=== PATIENT | male | born 1965 | race Hispanic/Latino ===

== ENCOUNTER → 2024-05-15 | Outpatient (CLI) | payer OTHER ==
--- NOTE | 2024-05-15 11:49 | HMCIMG ---
ABD 1VW HISTORY: Renal stone COMPARISON: None 07/12/2023 FINDINGS: A frontal projection of the abdomen was obtained. A nonspecific bowel gas pattern is seen. Fecal material is seen in the colon. Evaluation for renal stone is limited due to large amount of fecal material. Secretions are seen in the pelvis consistent with phleboliths. Degenerative changes of the thoracolumbar spine are noted. IMPRESSION: 1. A nonspecific bowel gas pattern is seen. Large amount of fecal material is seen in the colon limiting evaluation for renal stones.
--- NOTE | 2024-05-15 11:56 | HMCIMG ---
TOMOGRAM REASON: CALCULUS OF KIDNEY. COMPARISON: 07/12/2023 TECHNIQUE: Tomogram of the kidneys were obtained. FINDINGS: Extensive fecal material are seen limiting evaluation. No definite tomographic evidence of definite renal stone is seen in this limited study. IMPRESSION: Limited study.
== END | disposition home or self-care (01) ==
LOC: RAH 08:09
PROVIDERS: ATTEND Urology
DX: N20.0 Calculus of kidney (principal); M47.815 Spondylosis without myelopathy or radiculopathy, thoracolumbar region
CPT/HCPCS: 74018; 76100

== ENCOUNTER → 2024-07-03 | Outpatient (CLI) | payer OTHER ==
--- NOTE | 2024-07-03 11:26 | HMCIMG ---
Exam Type: ABD 1VW Clinical Information: CALCULUS OF KIDNEY Comparison: None Findings: Abdomen demonstrates no evidence of pathologic calcification or soft tissue mass. Small left renal calculi seen. The intestinal gas pattern is within normal limits without evidence of dilatation to suggest obstruction or adynamic ileus. The bony structures are unremarkable. IMPRESSION: Left nephrolithiasis.
--- NOTE | 2024-07-03 12:21 | HMCIMG ---
Exam Type: abdomen supine tomograms Tomogram planes done at 5 through 10 cm. Clinical Information: CALCULUS OF KIDNEY Comparison: None. Findings: Examination demonstrates centrally located left nephrolithiasis, largest calculus elongated measuring 7 x 1 mm. The limited visualization of the rest of the abdomen structures is unremarkable. IMPRESSION: Left nephrolithiasis.
== END | disposition home or self-care (01) ==
LOC: RAH 10:18
PROVIDERS: ATTEND Urology
DX: N20.0 Calculus of kidney (principal)
CPT/HCPCS: 74018; 76100

== ENCOUNTER → 2024-09-05 | Outpatient (CLI) | payer OTHER ==
--- NOTE | 2024-09-05 14:31 | HMCIMG ---
Exam Type: abdomen supine tomograms and KUB Tomogram planes done at 7 through 10 cm. Clinical Information: CALCULUS OF KIDNEY Comparison: None. Findings: There are no radiopacities to suggest calculous disease. The limited visualization of the rest of the abdomen structures is unremarkable. IMPRESSION: Normal tomogram exam. No calculi identified.
== END | disposition home or self-care (01) ==
LOC: RAH 11:08
PROVIDERS: ATTEND Urology
DX: N20.0 Calculus of kidney (principal)
CPT/HCPCS: 74018; 76100

== ENCOUNTER → 2024-09-17 | Outpatient (CLI) | payer OTHER ==
--- NOTE | 2024-09-17 10:50 | HMCIMG ---
CT ABD/PEL WO CON RENAL/APPY HISTORY: Renal stone COMPARISON: None TECHNIQUE: Multiple sequential axial images of the abdomen and pelvis were obtained from the dome of the diaphragm through symphysis pubis. Patient was not given contrast through intravenous route. Oral contrast was not given. FINDINGS: No pleural effusion is seen bilaterally. There is no evidence of parenchymal disease or pulmonary nodule of the visualized lower lungs. Degenerative changes of the thoracolumbar spine are present. The heart is not enlarged. The liver, spleen, adrenal glands and pancreas are unremarkable. There is no evidence of hydronephrosis bilaterally. There are tiny bilateral renal pelvic stones. There are 2 right renal stones with the largest measuring 3.5 mm. There is 1.6 mm left renal pelvic stone. Fecal material is seen in the colon. There are normal size retroperitoneal and mesenteric lymph nodes. No ascites is seen. No CT evidence of acute appendicitis is seen. Pelvic sidewalls are symmetric bilaterally. Bladder is moderately distended. Both phleboliths are seen. IMPRESSION: 1. Tiny bilateral renal pelvic stones without hydronephrosis. CT was performed with one or more following dose reduction techniques: automated exposure control, adjustment of the mA and kv according to patient's size, or use of a iterative reconstruction technique.
== END | disposition home or self-care (01) ==
LOC: RAH 09:36
PROVIDERS: ATTEND Urology
DX: N20.0 Calculus of kidney (principal); N32.89 Other specified disorders of bladder; R19.5 Other fecal abnormalities; M47.815 Spondylosis without myelopathy or radiculopathy, thoracolumbar region
CPT/HCPCS: 74176